=== PATIENT | male | born 1980 | race Caucasian/White ===

== ENCOUNTER 2020-10-04 17:55 | Emergency (ER) | payer OTHER ==
[~2020-10-04] VITALS: Ht 193 cm; Wt 128.0 kg
[2020-10-04 18:44] LABS: BILIRUBIN,URINE NEGATIVE (NEG); CLARITY,URINE CLEAR; COLOR,URINE YELLOW; NITRITE,URINE NEGATIVE (NEG); PH,URINE 5.5 (<5.0-8.0); PROTEIN,URINE NEGATIVE (NEG-TRACE); UROBILINOGEN,URINE 0.2 mg/dL (0.2 mg/dL)
[2020-10-04 18:54] LABS: BACTERIA,URINE 0 /HPF (0-FEW); WBC,URINE 0 /HPF (0-4)
--- NOTE | 2020-10-04 19:04 | RAD ---
CT abdomen pelvis without contrast dated 10/04/2020. No comparison available. Clinical data indication: Flank pain. TECHNIQUE: Contiguous axial imaging of the abdomen and pelvis performed without the administration of IV or oral contrast. One or more of the following individualized dose reduction techniques were utilized for this examinat ion: 1. Automated exposure control 2. Adjustment of the mA and/or kV according to patient size 3. Use of iterative reconstruction technique. FINDINGS: Images of the lung bases are clear. Heart size within normal limits. No pleural or pericardial effusi on. There are a few scattered calcified granuloma. There is a 3 mm calcific stone at the distal left ureter near the UVJ. Mild proximal left hydroureter and hydronephrosis. No calcific stone within the substance of either kidney. No right-sided ureteral stone or right sided hydronephrosis. Solid abdominal viscera not well evaluated in the absence of contrast material. No apparent attenuati on abnormality of the liver or spleen. Pancreas, adrenal glands and gallbladder unremarkable. Unopaci fied GI tract normal in caliber and contour. No bowel wall thickening. No free fluid or lymphadenopat hy. Abdominal aorta normal in caliber. Images of pelvis show nondistended urinary bladder. Mild diffuse bladder wall thickening. No free flu id or lymphadenopathy. Small bilateral inguinal hernia containing only fat. Bone windows show no acute findings. IMPRESSION: 1. There is a 3 mm calcific stone at the left UVJ with mild obstructive uropathy. Electronically signed by: Pietro Jovel MD (10/04/2020 7:02 PM) [facility]
[2020-10-04 19:07] LABS: BASO # 0.1 x10^3/uL (0.0-0.2); BASO % 1 % (0-3); EOS % 0 % (0-3); HEMATOCRIT 42.8 % (39.0-53.0); HEMOGLOBIN 14.5 g/dL (13.0-17.5); LYMPH # 1.1 x10^3/uL (1.0-4.8); LYMPH % 8 % (24-48); MEAN CORPUSCULAR HEMOGLOBIN 28 pg (25-35); MEAN CORPUSCULAR HGB CONC 34 g/dL (31-37); MEAN CORPUSCULAR VOLUME 83 fL (79-100); MONO # 0.8 x10^3/uL (0.0-1.1); MONO % 6 % (0-9); NEUT # 11.1 x10^3/uL (1.8-7.7); NEUT % 85 % (31-73); PLATELET COUNT 300 x10^3/uL (140-400); RED BLOOD COUNT 5.15 x10^6/uL (4.30-5.70); RED CELL DISTRIBUTION WIDTH 14.2 % (11.5-14.5)
[2020-10-04 19:18] LABS: CALCIUM 9.2 mg/dL (8.5-10.1); CREATININE 1.2 mg/dL (0.7-1.3); GFR 67.8; POTASSIUM 3.4 mmol/L (3.5-5.1)
[2020-10-04 19:24] LABS: ALBUMIN 4.1 g/dL (3.4-5.0); TOTAL BILIRUBIN 0.6 mg/dL (0.2-1.0); TOTAL PROTEIN 8.1 g/dL (6.4-8.2)
[2020-10-04 19:29] LABS: % BANDS 4 % (0-9); % LYMPHS 7 % (24-48); % MONOS 3 % (0-10); % SEGS 86 % (35-66); PLT ESTIMATE ADEQUATE (ADEQUATE)
[2020-10-04] MEDS ORDERED: TAMS0.4C97 PO (19:36)
[2020-10-04] MEDS ORDERED: HYDR-2761 PO (19:36)
[2020-10-04] MEDS ORDERED: ONDA4TAB12 PO (19:36)
--- NOTE | 2020-10-04 19:37 | ED.ADGEN ---
Past Medical History Past Medical History: No Pertinent History Past Surgical History: Other Additional Past Surgical Histo: Duodenal switch, Right? testicle removed Smoking Status: Current Every Day Smoker Alcohol Use: None General Adult EDM: Chief Complaint: FLANK PAIN HPI: HPI: Patient is a 39 year old male, accompanied by his , who presents emergency department with complaints of intermittent flank pain for the last week. Patient reports that he had right-sided flank pain last week but it has resolved, yesterday he developed pain in his left flank. The pain in his left flank got significantly worse this evening. He states he has had some urinary urgency and frequency, he denies any hematuria, incontinence, or abnormal penile discharge. Patient denies any nausea, vomiting, diarrhea, chest pain, palpitations, fever, or body aches. He currently rates the pain a 5 out of 10 o n the pain scale, he denies any alleviating or exacerbating factors. Patient denies any history of kidney stones. He reports that he had a duodenal switch for weight loss a year ago and has lost a significant amount of weight over the past year. Review of Systems: Review of Systems: Complete ROS is negative unless otherwise noted in HPI. Allergies: Allergies: Allergies Coded Allergies Type Severity Reaction Last Updated Verified No Known Drug Allergies 10/04/20 No Physical Exam: PE: See Above Constitutional: Well developed, well nourished, no acute distress, non-toxic appearance. [] HENT: Normocephalic, atraumatic, bilateral external ears normal, nose normal. [] Eyes: PERRLA, EOMI, conjunctiva normal, no discharge. [] Neck: Normal range of motion, no stridor. [] Cardiovascular:Heart rate regular rhythm Lungs & Thorax: Respirations even and unlabored, no retractions, no respiratory distress Abdomen: soft, no tenderness, lower left quadrant tenderness to palpation, no rebound tenderness, no guarding, no palpable mass Back: No CVA tenderness, nontender Skin: Warm, dry, no erythema, no rash. [] Extremities: No cyanosis, ROM intact, no edema. [] Neurologic: Alert and oriented X 3, no focal deficits noted. [] Psychologic: Affect normal, judgement normal, mood normal. [] Current Patient Data: Labs: Laboratory Tests Test 10/04/20 18:30 10/04/20 19:00 Urine Collection Type Unknown Urine Color Yellow Urine Clarity Clear Urine pH 5.5 (<5.0-8.0) Urine Specific Hutchins 1.015 (1.000-1.030) Urine Protein Negative mg/dL (NEG-TRACE) Urine Glucose (UA) Negative mg/dL (NEG) Urine Ketones (Stick) Negative mg/dL (NEG) Urine Blood Moderate (NEG) Urine Nitrite Negative (NEG) Urine Bilirubin Negative (NEG) Urine Urobilinogen Dipstick 0.2 mg/dL (0.2 mg/dL) Urine Leukocyte Esterase Negative (NEG) Urine RBC 6-10 /HPF (0-2) Urine WBC 0 /HPF (0-4) Urine Squamous Epithelial Cells Occ /LPF Urine Bacteria 0 /HPF (0-FEW) White Blood Count 13.0 x10^3/uL (4.0-11.0) H Red Blood Count 5.15 x10^6/uL (4.30-5.70) Hemoglobin 14.5 g/dL (13.0-17.5) Hematocrit 42.8 % (39.0-53.0) Mean Corpuscular Volume 83 fL (79-100) Mean Corpuscular Hemoglobin 28 pg (25-35) Mean Corpuscular Hemoglobin Concent 34 g/dL (31-37) Red Cell Distribution Width 14.2 % (11.5-14.5) Platelet Count 300 x10^3/uL (140-400) Neutrophils (%) (Auto) 85 % (31-73) H Lymphocytes (%) (Auto) 8 % (24-48) L Monocytes (%) (Auto) 6 % (0-9) Eosinophils (%) (Auto) 0 % (0-3) Basophils (%) (Auto) 1 % (0-3) Neutrophils # (Auto) 11.1 x10^3/uL (1.8-7.7) H Lymphocytes # (Auto) 1.1 x10^3/uL (1.0-4.8) Monocytes # (Auto) 0.8 x10^3/uL (0.0-1.1) Eosinophils # (Auto) 0.0 x10^3/uL (0.0-0.7) Basophils # (Auto) 0.1 x10^3/uL (0.0-0.2) Segmented Neutrophils % 86 % (35-66) H Band Neutrophils % 4 % (0-9) Lymphocytes % 7 % (24-48) L Monocytes % 3 % (0-10) Platelet Estimate Adequate (ADEQUATE) Sodium Level 144 mmol/L (136-145) Potassium Level 3.4 mmol/L (3.5-5.1) L Chloride Level 107 mmol/L (98-107) Carbon Dioxide Level 30 mmol/L (21-32) Anion Gap 7 (6-14) Blood Urea Nitrogen 11 mg/dL (8-26) Creatinine 1.2 mg/dL (0.7-1.3) Estimated GFR (Cockcroft-Gault) 67.8 BUN/Creatinine Ratio 9 (6-20) Glucose Level 135 mg/dL (70-99) H Calcium Level 9.2 mg/dL (8.5-10.1) Total Bilirubin 0.6 mg/dL (0.2-1.0) Aspartate Amino Transferase (AST) 21 U/L (15-37) Alanine Aminotransferase (ALT) 34 U/L (16-63) Alkaline Phosphatase 137 U/L (46-116) H Total Protein 8.1 g/dL (6.4-8.2) Albumin 4.1 g/dL (3.4-5.0) Albumin/Globulin Ratio 1.0 (1.0-1.7) Laboratory Tests 10/04/20 19:00 Laboratory Tests 10/04/20 19:00 Vital Signs: Vital Signs Date Time Temp Pulse Resp B/P (MAP) Pulse Ox O2 Delivery O2 Flow Rate FiO2 10/04/20 20:13 62 146/61 (89) 99 Room Air 10/04/20 18:25 97.8 18 97.8 EKG: EKG: [] Heart Score: C/O Chest Pain: No Risk Scores: Score 0 - 3: 2.5% MACE over next 6 weeks - Discharge Home Score 4 - 6: 20.3% MACE over next 6 weeks - Admit for Clinical Observation Score 7 - 10: 72.7% MACE over next 6 weeks - Early Invasive Strategies Radiology/Procedures: Radiology/Procedures: PROCEDURE: CT ABDOMEN PELVIS WO CONTRAST CT abdomen pelvis without contrast dated 10/04/2020. No comparison available. Clinical data indication: Flank pain. TECHNIQUE: Contiguous axial imaging of the abdomen and pelvis performed without the administration of IV or oral contrast. One or more of the following individualized dose reduction techniques were utilized for this examination: 1. Automated exposure control 2. Adjustment of the mA and/or kV according to patient size 3. Use of iterative reconstruction technique. FINDINGS: Images of the lung bases are clear. Heart size within normal limits. No pleural or pericardial effusion. There are a few scattered calcified granuloma. There is a 3 mm calcific stone at the distal left ureter near the UVJ. Mild pro ximal left hydroureter and hydronephrosis. No calcific stone within the substance of either kidney. No right-sided ureteral stone or right sided hydronephrosis. Solid abdominal viscera not well evaluated in the absence of contrast material. No apparent attenuation abnormality of the liver or spleen. Pancreas, adrenal glands and gallbladder unremarkable. Unopacified GI tract normal in caliber and contour. No bowel wall thickening. No free fluid or lymphadenopathy. Abdominal aorta normal in caliber. Images of pelvis show nondistended urinary bladder. Mild diffuse bladder wall thickening. No free fluid or lymphadenopathy. Small bilateral inguinal hernia containing only fat. Bone windows show no acute findings. IMPRESSION: 1. There is a 3 mm calcific stone at the left UVJ with mild obstructive uropathy.[] Course & Med Decision Making: Course & Med Decision Making Pertinent Labs and Imaging studies reviewed. (See chart for details) [] David Disclaimer: David Disclaimer: This electronic medical record was generated, in whole or in part, using a voice recognition dictation system. Departure Departure Impression: Primary Impression: Kidney stone on left side Additional Impression: Hydronephrosis, left Disposition: 01 DC HOME SELF CARE/HOMELESS Condition: STABLE Patient Instructions: Diet for Kidney Stones, Kidney Stones, [id number] Additional Instructions: Fill the prescriptions and use them as directed. Be sure to strain all of your urine in the strainer provided, take any collected stone with you to your doctors appointments of the stone can be analyzed. Return to the ER if symptoms worsen or you develop a fever. Recommend you follow-up with your primary care doctor or urologist next week. Scripts Ondansetron (ONDANSETRON ODT) 4 Mg Tab.rapdis 1 TAB PO PRN Q6-8HRS PRN for NAUSEA/VOMITING for 4 Days, #16 TAB 0 Refills Prov: GERA INGRAM PITCH WORKER 10/04/20 Hydrocodone Bit/Acetaminophen (HYDROCODONE-APAP 5-325 ) 1 Tab Tablet 1 TAB PO PRN Q6HRS PRN for PAIN for 3 Days, #12 TAB 0 Refills Prov: GERA INGRAM APRN 10/04/20 Tamsulosin Hcl (FLOMAX) 0.4 Mg Cap.er.24h 1 CAP PO DAILY for 14 Days, #14 CAP 0 Refills Prov: GERA INGRAM APRN 10/04/20 Problem Qualifiers GERA INGRAM APRN Oct 04, 2020 19:36
[2020-10-04 20:13] VITALS: BP 146/61
== END 2020-10-04 20:00 | disposition home or self-care (01) ==
LOC: ER 17:55
DX: N13.2 Hydronephrosis with renal and ureteral calculous obstruction (principal); F17.200 Nicotine dependence, unspecified, uncomplicated
CPT/HCPCS: 36415; 74176; 80053; 81001; 85007; 85025; 99284-25